=== PATIENT | female | born 1950 | race Hispanic/Latino ===

== ENCOUNTER → 2018-03-10 | Outpatient (CLI) | payer MEDICARE, MEDICAID ==
--- NOTE | 2018-03-10 14:00 | Diagnostic Imaging Report ---
PROCEDURE:SP LUM COMP. W/BEND MIN 6 VW TECHNIQUE:AP, lateral, bilateral oblique, coned-down, flexion views lumbar spine INDICATION:Low back pain down the right leg for one month. COMPARISON:None. FINDINGS: 5 [id number] lumbar vertebral bodies. Mild L4-L5 disc space height loss; otherwise, disc spaces are normal. L4-L5 facet arthropathy without evidence of neural foramen stenosis. CONCLUSION: Mild loss of disc space height at L4-L5 with accompanying L4-L5 facet arthropathy. No evidence of bony neural foramen stenosis. Dictated by: Blaine Reynolds M.D. on 03/10/2018 at 14:02 Electronically approved by: Blaine Reynolds M.D. on 03/10/2018 at 14:02
== END ==
LOC: RAD 11:55
PROVIDERS: ATTEND Internal Medicine
DX: M54.41 Lumbago with sciatica, right side (principal)
CPT/HCPCS: 72114

== ENCOUNTER → 2018-04-24 | Outpatient (CLI) | payer MEDICARE ==
--- NOTE | 2018-04-24 10:59 | Diagnostic Imaging Report ---
History: Right leg pain Comparison studies: X-ray of the lumbar spine 03/10/2018 Technique: Sagittal, coronal and axial T2 , sagittal T1 and IR, axial spin density oblique. Intravenous contrast: None Findings: Number of lumbar vertebral bodies:5 Alignment: Normal lordosis.Minimal dextroscoliosis, possibly positional. Soft tissues: No T2 hyperintense inflammatory changes. Paraspinal muscles: No signal abnormalities. No atrophy. Lower thoracic cord:Normal in signal and morphology. The tip of the conus is at L1-L2. Cauda equina: No masses. No arachnoiditis. Vertebrae: Normal in height and signal intensity. No compression fractures, infection or neoplasm. Degenerative changes: L1-L2: No abnormalities. L2-L3: Mild disc degeneration patent canal and foramina. L3-L4: Mild disc degeneration and mild facet hypertrophy with patent canal and foramina. L4-L5: Mild disc degeneration with loss of T2 signal. Diffuse disc bulge, moderate facet hypertrophy and ligamentum flavum thickening results in mild canal stenosis and mild left foraminal narrowing. L5-S1: Disc degeneration with loss of T2 signal. Asymmetric right disc bulge, severe right and moderate left facet hypertrophy and ligamentum flavum thickening results in mild canal stenosis, narrowing of the right subarticular recesses and moderate right foraminal narrowing. Fluid at the right facet joint with periarticular inflammation, Additional findings: None IMPRESSION: Narrowing of the right subarticular recess and moderate right foraminal narrowing at L5-S1 secondary to asymmetric right disc bulge and severe right facet hypertrophy. Disc material contacts the exiting L5 and descending S1 nerve roots with possible impingement on the former. Synovitis with periarticular inflammation at the right L5-S1 facet joint.. Signed by: DR Sudheer Isbell M.D. on 04/24/2018 10:55 AM
== END | disposition home or self-care (01) ==
LOC: MRI 08:01
PROVIDERS: ATTEND Internal Medicine
DX: M54.16 Radiculopathy, lumbar region (principal); M51.37 Other intervertebral disc degeneration, lumbosacral region; M51.34 Other intervertebral disc degeneration, thoracic region
CPT/HCPCS: 72148

== ENCOUNTER → 2021-05-01 | Outpatient (CLI) | payer MEDICARE | LOC: MRI 15:32 | PROVIDERS: ATTEND Psychiatry & Neurology Clinical Neurophysiology | DX: M54.16 Radiculopathy, lumbar region (principal) | CPT/HCPCS: 72148 ==

== ENCOUNTER → 2022-05-21 | Outpatient (CLI) | payer MEDICARE | LOC: RAD 12:50 | PROVIDERS: ATTEND Internal Medicine | DX: M54.2 Cervicalgia (principal); S05.91XA Unspecified injury of right eye and orbit, initial encounter | CPT/HCPCS: 70200; 72050 ==

== ENCOUNTER 2022-06-11 10:19 | Emergency (ER) | payer MEDICARE ==
[~2022-06-11] VITALS: Ht 152.4 cm; Wt 72.6 kg
[2022-06-11] MEDS ORDERED: KETOROLAC TROMETHAMINE 30 MG/ML VIAL IM PRN (11:30)
[2022-06-11] MEDS ORDERED: KETOROLAC TROMETHAMINE 30 MG/ML VIAL ONE (11:35)
[2022-06-11] MEDS ORDERED: PREDNISONE50 MG PO (11:42)
== END 2022-06-11 11:46 | disposition home or self-care (01) ==
LOC: ER 11:00
DX: R50.9 Fever, unspecified (principal); M54.41 Lumbago with sciatica, right side; I10 Essential (primary) hypertension; E11.9 Type 2 diabetes mellitus without complications; E78.5 Hyperlipidemia, unspecified; E03.9 Hypothyroidism, unspecified
CPT/HCPCS: 99282; J1885